=== PATIENT | female | born 1995 | race Caucasian/White ===

== ENCOUNTER 2017-04-23 19:42 | Emergency (ER) | payer BC, OTHER ==
[~2017-04-23] VITALS: Ht 152.4 cm; Wt 52.0 kg
[2017-04-23 19:42] VITALS: BP 114/83
[~2017-04-23 19:42] MED LIST: AZIT250T PO; BIOT1CAP3 PO; CETI10TA16 PO; CIPR500T PO; CLOT15CR4 TP; DEXA4TAB PO; ETHI1TAB PO; FLUO20CA16 PO; GUAN2TAB5 PO; LISD10CA PO; LISD40CA3 PO; MELA1TAB SL; MULT-208 PO; TRAZ50TA15 PO
[2017-04-23] MEDS ORDERED: CLIN300C8 PO (20:13)
[2017-04-23] MEDS ORDERED: CLOT15CR4 TP (20:13)
--- NOTE | 2017-04-23 20:19 | PHYS DOC ---
Past History Past Medical History: Anxiety, Depression Past Surgical History: No Surgical History Smoking: Non-smoker Alcohol Use: None Drug Use: None Adult General Chief Complaint Chief Complaint: SKIN RASH/ABSCESS HPI HPI 22-year-old female presenting to the emergency department today with a rash. She reports the rash started 24 hours ago. There are 3 locations of circular annular rashes that are approximately 3 cm in diameter. One is on the upper right shoulder the second is on the cheek and the other is just on the right eyebrow. They are not itchy. They're not painful. She denies having any fevers. She denies any vision changes or chills. Duration constant. No alleviating or exacerbating factors present. Review of systems is negative for fevers chills nausea vomiting. All other review of systems is negative unless otherwise noted in history of present illness. ED course: 22-year-old female presenting with 3 annular rashes in different locations. She is afebrile with a normal heart rate here in the emergency room and well-appearing. On examination of the patient's rash she has a 3 cm diameter circular mildly raised macular rash in the above locations. The rash does kin. Clinically suggestive of tinea corporis. We will initiate topical antifungals. Cellulitis is in the differential though less likely. We will cover for this with oral antibiotics to have her follow-up with her doctor the next few days. The patient was then discharged home in stable condition to follow up with their primary care physician over the next 2-3 days. They were to return if their symptoms worsened or if they were concerned for any reason. [id number] discharge instructions and return precautions were given. Patient' s questions were answered to their satisfaction. Patient is comfortable plan. Review of Systems Review of Systems SEE ABOVE. Allergies Allergies Allergies Coded Allergies Type Severity Reaction Last Updated Verified Penicillins Allergy Unknown 08/20/13 Yes amoxicillin Allergy Unknown 08/20/13 Yes Physical Exam Physical Exam SEE ABOVE Constitutional: Well developed, well nourished, no acute distress, non-toxic appearance. [] HENT: Normocephalic, atraumatic, bilateral external ears normal, oropharynx moist, no oral exudates, nose normal. [] Eyes: PERRLA, EOMI, conjunctiva normal, no discharge. [] Neck: Normal range of motion, no tenderness, supple, no stridor. [] Cardiovascular:Heart rate regular rhythm, no murmur [] Lungs & Thorax: Bilateral breath sounds clear to auscultation [] Abdomen: Bowel sounds normal, soft, no tenderness, no masses, no pulsatile masses. [] Skin: Warm, dry, no erythema, no rash. [] Back: No tenderness, no CVA tenderness. [] Extremities: No tenderness, no cyanosis, no clubbing, ROM intact, no edema. [] Neurologic: Alert and oriented X 3, normal motor function, normal sensory function, no focal deficits noted. [] Psychologic: Affect normal, judgement normal, mood normal. [] EKG EKG [] Radiology/Procedures Radiology/Procedures [] Course & Med Decision Making Course & Med Decision Making Pertinent Labs and Imaging studies reviewed. (See chart for details) [] Dragon Disclaimer Dragon Disclaimer This electronic medical record was generated, in whole or in part, using a voice recognition dictation system. Departure Departure: Impression: Primary Impression: Tinea corporis Disposition: HOME, SELF-CARE Condition: STABLE Referrals: PCP,ALEJANDRINA (PCP) Additional Instructions: Thank you for allowing us to participate in your care today. Followup with your primary care physician in 3 days if your symptoms do not improve. Call your Primary Doctor tomorrow and inform them of your visit today. If you do not have a primary care provider you can ask for a list of our primary care providers. Return to the emergency department you have any new or concerning findings. This should be evaluated by the primary care physician and any necessary consulting services for continued management within a few days after discharge. Return to emergency room if you have any new or concerning symptoms including but not limited to fever, chills, nausea, vomiting, intractable pain, any new rashes, chest pain, shortness of air, uncontrolled bleeding, difficulty breathing, and/or vision loss. Scripts Clindamycin Hcl (CLINDAMYCIN HCL) 300 Mg Capsule 1 CAP PO TID, #21 CAP Prov: DARRIAN MCGEE MD 04/23/17 Clotrimazole (CLOTRIMAZOLE) 15 Gm Cream..g. 1 DELIA TP BID, #30 GM Prov: DARRIAN MCGEE MD 04/23/17 DARRIAN MCGEE MD Apr 23, 2017 20:19
== END 2017-04-23 20:36 | disposition home or self-care (01) ==
LOC: ER 19:42
DX: B35.4 Tinea corporis (principal); F41.9 Anxiety disorder, unspecified; F32.9 Major depressive disorder, single episode, unspecified; Z88.0 Allergy status to penicillin; Z88.1 Allergy status to other antibiotic agents
CPT/HCPCS: 99283

== ENCOUNTER 2018-09-18 17:09 | Emergency (ER) | payer BC, OTHER ==
[~2018-09-18] VITALS: Ht 152.4 cm; Wt 57.6 kg
[~2018-09-18 17:09] MED LIST changes: +CLIN300C8 PO; +TRAZ-120 PO; -TRAZ50TA15 PO
[2018-09-18] MEDS ORDERED: IV RINGERS SOLUTION,LACTATED 1,000 ML IV SCH (18:11)
--- NOTE | 2018-09-18 18:19 | ED.ADGEN ---
Past History Past Medical History: Anxiety, Depression, Other Past Surgical History: No Surgical History Smoking: Non-smoker Alcohol Use: Rarely Drug Use: None Adult General Chief Complaint Chief Complaint ".. I ve had abdomen pain .. and spotting since 2 weeks ago... after I had a IUD placed.. by Dr. Michel.. I ve had Ovarian cysts before that hurt.. but not like this.. 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 pain. Patient states she's had abdomen pain since implantation of IUD 2 weeks ago. Patient denies any specific ill contacts. No recent travel. Has recently moved from [place]. Has had 4 lifetime sex partn ers. No history of STDs. Had a normal stool today. Patient does history of ovarian cysts. Patient notes pain seems to be more present on right lower abdomen. Patient continues to spot since implantation of IUD. Pt. normally follows with Dr. Renae and Dr. Michel wound care rn. Review of Systems Review of Systems Constitutional: Denies fever or chills [] Eyes: Denies change in visual acuity, redness, or eye pain [] HENT: Denies nasal congestion or sore throat [] Respiratory: Denies cough or shortness of breath [] Cardiovascular: No additional information not addressed in HPI [] GI: Complaints of pelvic abdominal pain, nausea,. Denies vomiting, bloody stools or diarrhea [] : Denies dysuria or hematuria [] Musculoskeletal: Denies back pain or joint pain [] Integument: Denies rash or skin lesions [] Neurologic: Denies headache, focal weakness or sensory changes [] Endocrine: Denies polyuria or polydipsia [] All other systems were reviewed and found to be within normal limits, except as documented in this note. Family History Family History Noncontributory Current Medications Current Medications Current Medications Medications (Trade) Dose Ordered Sig/Armando Start Time Stop Time Status Last Admin Dose Admin Famotidine (Pepcid Vial) 20 mg 1X ONCE 09/18/18 18:30 09/18/18 18:31 DC 09/18/18 19:15 20 MG Fluorescein Sodium (Ful-Dania 1mg) 2 strip 1X ONCE 09/18/18 19:30 09/18/18 19:31 Cancel Iohexol (Omnipaque 240 Mg/ml) 30 ml 1X ONCE 09/18/18 19:15 09/18/18 19:17 DC 09/18/18 20:57 30 ML Iohexol (Omnipaque 300 Mg/ml) 75 ml 1X ONCE 09/18/18 19:30 09/18/18 19:31 DC 09/18/18 20:57 75 ML Ketorolac Tromethamine (Acular) 2 drop 1X ONCE 09/18/18 19:30 09/18/18 19:31 Cancel Lactated Ringer's 1,000 ml @ 1,000 mls/hr Q1H 09/18/18 18:11 09/18/18 19:10 DC 09/18/18 19:15 1,000 MLS/HR Ondansetron HCl (Zofran) 8 mg 1X ONCE 09/18/18 18:30 09/18/18 18:31 DC 09/18/18 19:16 8 MG Tetracaine HCl (Tetracaine) 2 drop 1X STAT 09/18/18 19:17 09/18/18 19:18 Cancel Allergies Allergies Allergies Coded Allergies Type Severity Reaction Last Updated Verified Penicillins Allergy Unknown 08/20/13 Yes amoxicillin Allergy Unknown 08/20/13 Yes Physical Exam Physical Exam Constitutional: Well developed, well nourished, moderately acute distress, non- toxic appearance. [] HENT: Normocephalic, atraumatic, bilateral external ears normal, oropharynx moist, no oral exudates, nose normal. [] Eyes: PERRLA, EOMI, conjunctiva normal, no discharge. []glasses. Neck: Normal range of motion, no tenderness, supple, no stridor. [] Cardiovascular:Heart rate regular rhythm, no murmur [] Lungs & Thorax: Bilateral breath sounds clear to auscultation [] Abdomen: Bowel sounds normal, soft, Rt. lower abd. tenderness, no masses, no pulsatile masses. . Pelvic exam localizes pain to right adnexal area. Mild cervical motion tenderness. Is spotting. IUD string is visible.[] Does have mild rebound to right lower quadrant. Rectal nontender Skin: Warm, dry, no erythema, no rash. [] Back: No tenderness, no CVA tenderness. [] Extremities: No tenderness, no cyanosis, no clubbing, ROM intact, no edema. [] Does have a very mild psoas. On right Neurologic: Alert and oriented X 3, normal motor function, normal sensory function, no focal deficits noted. [] Psychologic: Affect anxious, judgement normal, mood normal. [] Current Patient Data Vital Signs Vital Signs Date Time Temp Pulse Resp B/P (MAP) Pulse Ox O2 Delivery O2 Flow Rate FiO2 09/18/18 22:45 98.2 82 16 107/62 (77) 100 Room Air Lab Results Laboratory Tests Test 09/18/18 18:33 09/18/18 18:40 09/18/18 18:54 09/18/18 19:03 White Blood Count 8.2 x10^3/uL (4.0-11.0) Red Blood Count 4.70 x10^6/uL (3.50-5.40) Hemoglobin 13.4 g/dL (12.0-15.5) Hematocrit 39.4 % (36.0-47.0) Mean Corpuscular Volume 84 fL (79-100) Mean Corpuscular Hemoglobin 29 pg (25-35) Mean Corpuscular Hemoglobin Concent 34 g/dL (31-37) Red Cell Distribution Width 13.2 % (11.5-14.5) Platelet Count 282 x10^3/uL (140-400) Neutrophils (%) (Auto) 58 % (31-73) Lymphocytes (%) (Auto) 31 % (24-48) Monocytes (%) (Auto) 7 % (0-9) Eosinophils (%) (Auto) 2 % (0-3) Basophils (%) (Auto) 1 % (0-3) Neutrophils # (Auto) 4.8 x10^3uL (1.8-7.7) Lymphocytes # (Auto) 2.6 x10^3/uL (1.0-4.8) Monocytes # (Auto) 0.6 x10^3/uL (0.0-1.1) Eosinophils # (Auto) 0.2 x10^3/uL (0.0-0.7) Basophils # (Auto) 0.1 x10^3/uL (0.0-0.2) Prothrombin Time 9.3 SEC (9.4-11.4) L Prothrombin Time INR 0.9 (0.9-1.1) PTT 23 SEC (23-33) Urine Collection Type Unknown Urine Color Straw Urine Clarity Clear Urine pH 7.0 Urine Specific [place] 1.010 Urine Protein Neg (NEG-TRACE) Urine Glucose (UA) Neg mg/dL (NEG) Urine Ketones (Stick) Neg mg/dL (NEG) Urine Blood Small (NEG) Urine Nitrite Neg (NEG) Urine Bilirubin Neg (NEG) Urine Urobilinogen Dipstick 0.2 mg/dL (0.2 mg/dL) Urine Leukocyte Esterase Neg (NEG) Urine RBC 0 /HPF (0-2) Urine WBC 0 /HPF (0-4) Urine Squamous Epithelial Cells Occ /LPF Urine Bacteria 0 /HPF (0-FEW) Urine Opiates Screen Neg (NEG) Urine Methadone Screen Neg (NEG) Urine Barbiturates Neg (NEG) Urine Phencyclidine Screen Neg (NEG) Urine Amphetamine/Methamphetamine Neg (NEG) Urine Benzodiazepines Screen Neg (NEG) Urine Cocaine Screen Neg (NEG) Urine Cannabinoids Screen Neg (NEG) Urine Ethyl Alcohol Neg (NEG) Sodium Level 141 mmol/L (136-145) Potassium Level 3.9 mmol/L (3.5-5.1) Chloride Level 104 mmol/L (98-107) Carbon Dioxide Level 29 mmol/L (21-32) Anion Gap 8 (6-14) Blood Urea Nitrogen 11 mg/dL (7-20) Creatinine 0.7 mg/dL (0.6-1.0) Estimated GFR (Cockcroft-Gault) 105.6 Glucose Level 81 mg/dL (70-99) Calcium Level 9.1 mg/dL (8.5-10.1) Total Bilirubin 0.2 mg/dL (0.2-1.0) Direct Bilirubin < 0.1 mg/dL (0.0-0.2) Aspartate Amino Transferase (AST) 17 U/L (15-37) Alanine Aminotransferase (ALT) 21 U/L (14-59) Alkaline Phosphatase 62 U/L (46-116) Total Protein 7.3 g/dL (6.4-8.2) Albumin 3.6 g/dL (3.4-5.0) Amylase Level 65 U/L (25-115) Lipase 133 U/L (73-393) POC Urine HCG, Qualitative hcg negative (Negative) Microbiology 09/18/18 Wet Prep - Final, Complete Laboratory Tests Test 09/18/18 18:33 09/18/18 18:40 09/18/18 18:54 09/18/18 19:03 White Blood Count 8.2 x10^3/uL (4.0-11.0) Red Blood Count 4.70 x10^6/uL (3.50-5.40) Hemoglobin 13.4 g/dL (12.0-15.5) Hematocrit 39.4 % (36.0-47.0) Mean Corpuscular Volume 84 fL (79-100) Mean Corpuscular Hemoglobin 29 pg (25-35) Mean Corpuscular Hemoglobin Concent 34 g/dL (31-37) Red Cell Distribution Width 13.2 % (11.5-14.5) Platelet Count 282 x10^3/uL (140-400) Neutrophils (%) (Auto) 58 % (31-73) Lymphocytes (%) (Auto) 31 % (24-48) Monocytes (%) (Auto) 7 % (0-9) Eosinophils (%) (Auto) 2 % (0-3) Basophils (%) (Auto) 1 % (0-3) Neutrophils # (Auto) 4.8 x10^3uL (1.8-7.7) Lymphocytes # (Auto) 2.6 x10^3/uL (1.0-4.8) Monocytes # (Auto) 0.6 x10^3/uL (0.0-1.1) Eosinophils # (Auto) 0.2 x10^3/uL (0.0-0.7) Basophils # (Auto) 0.1 x10^3/uL (0.0-0.2) Prothrombin Time 9.3 SEC (9.4-11.4) L Prothrombin Time INR 0.9 (0.9-1.1) PTT 23 SEC (23-33) Urine Collection Type Unknown Urine Color Straw Urine Clarity Clear Urine pH 7.0 Urine Specific [place] 1.010 Urine Protein Neg (NEG-TRACE) Urine Glucose (UA) Neg mg/dL (NEG) Urine Ketones (Stick) Neg mg/dL (NEG) Urine Blood Small (NEG) Urine Nitrite Neg (NEG) Urine Bilirubin Neg (NEG) Urine Urobilinogen Dipstick 0.2 mg/dL (0.2 mg/dL) Urine Leukocyte Esterase Neg (NEG) Urine RBC 0 /HPF (0-2) Urine WBC 0 /HPF (0-4) Urine Squamous Epithelial Cells Occ /LPF Urine Bacteria 0 /HPF (0-FEW) Urine Opiates Screen Neg (NEG) Urine Methadone Screen Neg (NEG) Urine Barbiturates Neg (NEG) Urine Phencyclidine Screen Neg (NEG) Urine Amphetamine/Methamphetamine Neg (NEG) Urine Benzodiazepines Screen Neg (NEG) Urine Cocaine Screen Neg (NEG) Urine Cannabinoids Screen Neg (NEG) Urine Ethyl Alcohol Neg (NEG) Sodium Level 141 mmol/L (136-145) Potassium Level 3.9 mmol/L (3.5-5.1) Chloride Level 104 mmol/L (98-107) Carbon Dioxide Level 29 mmol/L (21-32) Anion Gap 8 (6-14) Blood Urea Nitrogen 11 mg/dL (7-20) Creatinine 0.7 mg/dL (0.6-1.0) Estimated GFR (Cockcroft-Gault) 105.6 Glucose Level 81 mg/dL (70-99) Calcium Level 9.1 mg/dL (8.5-10.1) Total Bilirubin 0.2 mg/dL (0.2-1.0) Direct Bilirubin < 0.1 mg/dL (0.0-0.2) Aspartate Amino Transferase (AST) 17 U/L (15-37) Alanine Aminotransferase (ALT) 21 U/L (14-59) Alkaline Phosphatase 62 U/L (46-116) Total Protein 7.3 g/dL (6.4-8.2) Albumin 3.6 g/dL (3.4-5.0) Amylase Level 65 U/L (25-115) Lipase 133 U/L (73-393) POC Urine HCG, Qualitative hcg negative (Negative) Microbiology 09/18/18 Wet Prep - Final, Complete EKG EKG [] Radiology/Procedures Radiology/Procedures My interpretation of abdomen film shows no acute cardiopulmonary findings. No free air in the diaphragm. Nonobstructive bowel gas pattern. There is a stool in colon. The IUD visible CT of abdomen shows[] a left ovarian cyst. Appendix was not specifically identified. No noted inflammation. No free air. IUD appears appropriately placed. See formal report when available Course & Med Decision Making Course & Med Decision Making Pertinent Labs and Imaging studies reviewed. (See chart for details) Patient's stay on a clear fluid diet only for the next 2 days. Take Tylenol and ibuprofen for pain. Must have re exam localization of pain. May need repeat CT. Will up pending cultures. Return if any concerns. Follow-up primary care. Follow-up [facility]ATIONS [employer]IST. [] Final Impression Final Impression 1. Pelvic Pain[] Rt. lower Quadrant 2. Left ovarian cyst 3. Recent IUD placement Dragon Disclaimer Dragon Disclaimer This electronic medical record was generated, in whole or in part, using a voice recognition dictation system. Discharge Summary Visit Information Final Diagnosis Problems Medical Problems: (1) Abdominal pain Status: Acute (2) Ovarian cyst Status: Acute Brief Hospital Course Allergies Allergies Coded Allergies Type Severity Reaction Last Updated Verified Penicillins Allergy Unknown 08/20/13 Yes amoxicillin Allergy Unknown 08/20/13 Yes Vital Signs Vital Signs Date Time Temp Pulse Resp B/P (MAP) Pulse Ox O2 Delivery O2 Flow Rate FiO2 09/18/18 22:45 98.2 82 16 107/62 (77) 100 Room Air Lab Results Laboratory Tests Test 09/18/18 18:33 09/18/18 18:40 09/18/18 18:54 09/18/18 19:03 White Blood Count 8.2 x10^3/uL (4.0-11.0) Red Blood Count 4.70 x10^6/uL (3.50-5.40) Hemoglobin 13.4 g/dL (12.0-15.5) Hematocrit 39.4 % (36.0-47.0) Mean Corpuscular Volume 84 fL (79-100) Mean Corpuscular Hemoglobin 29 pg (25-35) Mean Corpuscular Hemoglobin Concent 34 g/dL (31-37) Red Cell Distribution Width 13.2 % (11.5-14.5) Platelet Count 282 x10^3/uL (140-400) Neutrophils (%) (Auto) 58 % (31-73) Lymphocytes (%) (Auto) 31 % (24-48) Monocytes (%) (Auto) 7 % (0-9) Eosinophils (%) (Auto) 2 % (0-3) Basophils (%) (Auto) 1 % (0-3) Neutrophils # (Auto) 4.8 x10^3uL (1.8-7.7) Lymphocytes # (Auto) 2.6 x10^3/uL (1.0-4.8) Monocytes # (Auto) 0.6 x10^3/uL (0.0-1.1) Eosinophils # (Auto) 0.2 x10^3/uL (0.0-0.7) Basophils # (Auto) 0.1 x10^3/uL (0.0-0.2) Prothrombin Time 9.3 SEC (9.4-11.4) Prothromb Time International Ratio 0.9 (0.9-1.1) Activated Partial Thromboplast Time 23 SEC (23-33) Urine Collection Type Unknown Urine Color Straw Urine Clarity Clear Urine pH 7.0 Urine Specific [place]ef[place] 1.010 Urine Protein Neg (NEG-TRACE) Urine Glucose (UA) Neg mg/dL (NEG) Urine Ketones (Stick) Neg mg/dL (NEG) Urine Blood Small (NEG) Urine Nitrite Neg (NEG) Urine Bilirubin Neg (NEG) Urine Urobilinogen Dipstick 0.2 mg/dL (0.2 mg/dL) Urine Leukocyte Esterase Neg (NEG) Urine RBC 0 /HPF (0-2) Urine WBC 0 /HPF (0-4) Urine Squamous Epithelial Cells Occ /LPF Urine Bacteria 0 /HPF (0-FEW) Urine Opiates Screen Neg (NEG) Urine Methadone Screen Neg (NEG) Urine Barbiturates Neg (NEG) Urine Phencyclidine Screen Neg (NEG) Urine Amphetamine/Methamphetamine Neg (NEG) Urine Benzodiazepines Screen Neg (NEG) Urine Cocaine Screen Neg (NEG) Urine Cannabinoids Screen Neg (NEG) Urine Ethyl Alcohol Neg (NEG) Sodium Level 141 mmol/L (136-145) Potassium Level 3.9 mmol/L (3.5-5.1) Chloride Level 104 mmol/L (98-107) Carbon Dioxide Level 29 mmol/L (21-32) Anion Gap 8 (6-14) Blood Urea Nitrogen 11 mg/dL (7-20) Creatinine 0.7 mg/dL (0.6-1.0) Estimated GFR (Cockcroft-Gault) 105.6 Glucose Level 81 mg/dL (70-99) Calcium Level 9.1 mg/dL (8.5-10.1) Total Bilirubin 0.2 mg/dL (0.2-1.0) Direct Bilirubin < 0.1 mg/dL (0.0-0.2) Aspartate Amino Transf (AST/SGOT) 17 U/L (15-37) Alanine Aminotransferase (ALT/SGPT) 21 U/L (14-59) Alkaline Phosphatase 62 U/L (46-116) Total Protein 7.3 g/dL (6.4-8.2) Albumin 3.6 g/dL (3.4-5.0) Amylase Level 65 U/L (25-115) Lipase 133 U/L (73-393) Bedside Urine HCG, Qualitative hcg negative (Negative) Brief Hospital Course Ms. Mcgill is a 23 old female who presented with Rt. lower quadrant and pelvic pain. Hx. recent IUD placement. Discharge Information Condition at Discharge: Improved, Stable Disposition/Orders: D/C to Home Dischare Medications Current Medications Lactated Ringer's 1,000 ml @ 1,000 mls/hr Q1H IV Last administered on 09/18/18at 19:15; Admin Dose 1,000 MLS/HR; Start 09/18/18 at 18:11; Stop 09/18/18 at 19:10; Status DC Ondansetron HCl (Zofran) 8 mg 1X ONCE IV Last administered on 09/18/18at 19:16; Admin Dose 8 MG; Start 09/18/18 at 18:30; Stop 09/18/18 at 18:31; Status DC Famotidine (Pepcid Vial) 20 mg 1X ONCE IVP Last administered on 09/18/18at 19:15; Admin Dose 20 MG; Start 09/18/18 at 18:30; Stop 09/18/18 at 18:31; Status DC Iohexol (Omnipaque 240 Mg/ml) 30 ml 1X ONCE PO Last administered on 09/18/18at 20:57; Admin Dose 30 ML; Start 09/18/18 at 19:15; Stop 09/18/18 at 19:17; Status DC Iohexol (Omnipaque 300 Mg/ml) 75 ml 1X ONCE IV Last administered on 09/18/18at 20:57; Admin Dose 75 ML; Start 09/18/18 at 19:30; Stop 09/18/18 at 19:31; Status DC Tetracaine HCl (Tetracaine) 2 drop 1X STAT OU ; Start 09/18/18 at 19:17; Stop 09/18/18 at 19:18; Status Cancel Ketorolac Tromethamine (Acular) 2 drop 1X ONCE OU ; Start 09/18/18 at 19:30; Stop 09/18/18 at 19:31; Status Cancel Fluorescein Sodium (Ful-Dania 1mg) 2 strip 1X ONCE OU ; Start 09/18/18 at 19:30; Stop 09/18/18 at 19:31; Status Cancel Active Scripts Active Zofran (Ondansetron Hcl) 8 Mg Tablet 8 Mg PO QIDPRN Hydrocodone-Ibuprofen 7.5-200 (Hydrocodone/Ibuprofen) 1 Each Tablet 1 Tab PO PRN Q6HRS PRN Clindamycin Hcl 300 Mg Capsule 1 Cap PO TID Clotrimazole 15 Gm Cream..g. 1 Rosita TP BID Ciprofloxacin Hcl 500 Mg Tablet 1 Tab PO BID Reported Trazodone Hcl 50 Mg Tablet 0.5 Tab PO QHS Biotin 1 Mg Capsule 1 Mg PO Gianvi 3 Mg-0.02 Mg Tablet (Ethinyl Estradiol/Drospirenone) 1 Each Tablet 1 Tab PO DAILY Melatonin 1 Mg Tab.subl 1 Mg SL Cetirizine Hcl 10 Mg Tablet 1 Tab PO DAILY Prozac (Fluoxetine Hcl) 20 Mg Capsule 1 Cap PO DAILY Vyvanse (Lisdexamfetamine Dimesylate) 10 Mg Capsule 60 Mg PO DAILY Zithromax (Azithromycin) 250 Mg Tablet 250 Mg PO DAILY Dexamethasone 4 Mg Tablet 4 Tab PO DAILY Clotrimazole 15 Gm Cream..g. 1 Rosita TP TID Vestura 3 Mg-0.02 Mg Tablet (Ethinyl Estradiol/Drospirenone) 1 Each Tablet 1 Each PO DAILY Intuniv (Guanfacine Hcl) 2 Mg Tab.er.24h 2 Mg PO QHS Multi-Day Vitamins (Multivitamin) 1 Each Tablet 1 Each PO DAILY Vyvanse (Lisdexamfetamine Dimesylate) 40 Mg Capsule 40 Mg PO DAILY Dragon Disclaimer This chart was dictated in whole or in part using Voice Recognition software in a busy, high-work load, and often noisy Emergency Department environment. It may contain unintended and wholly unrecognized errors or omissions. ARNALDO MONTES MD Sep 18, 2018 18:19
[2018-09-18] MEDS ORDERED: ONDANSETRON PF 4 MG/2 ML VIAL. IV ONE (18:30)
[2018-09-18] MEDS ORDERED: FAMOTIDINE 20 MG/2 ML VIAL IVP ONE (18:30)
[2018-09-18 18:50] LABS: BASO # 0.1 x10^3/uL (0.0-0.2); BASO % 1 % (0-3); EOS # 0.2 x10^3/uL (0.0-0.7); EOS % 2 % (0-3); HEMATOCRIT 39.4 % (36.0-47.0); HEMOGLOBIN 13.4 g/dL (12.0-15.5); LYMPH # 2.6 x10^3/uL (1.0-4.8); LYMPH % 31 % (24-48); MEAN CORPUSCULAR HEMOGLOBIN 29 pg (25-35); MEAN CORPUSCULAR HGB CONC 34 g/dL (31-37); MEAN CORPUSCULAR VOLUME 84 fL (79-100); MONO # 0.6 x10^3/uL (0.0-1.1); MONO % 7 % (0-9); NEUT # 4.8 x10^3uL (1.8-7.7); NEUT % 58 % (31-73); PLATELET COUNT 282 x10^3/uL (140-400); RED CELL DISTRIBUTION WIDTH 13.2 % (11.5-14.5); WHITE BLOOD COUNT 8.2 x10^3/uL (4.0-11.0)
[2018-09-18] MEDS ORDERED: IOHEXOL 240 MG/ML 50ML VIAL. PO ONE (19:15)
[2018-09-18] MEDS ORDERED: TETRACAINE 0.5% OPHTH SOLUTION 4ML BOTTLE. OU STA (19:17)
[2018-09-18] MEDS ORDERED: KETOROLAC TROMETHAMINE 0.5% OPHTH SOLUTION 3ML BOTTLE. OU ONE (19:30)
[2018-09-18] MEDS ORDERED: IOHEXOL 300 MG/ML 75 ML VIAL. IV ONE (19:30)
[2018-09-18] MEDS ORDERED: FLUORESCEIN 1MG EYE STRIP. OU ONE (19:30)
[2018-09-18 19:40] LABS: BACTERIA,URINE 0 /HPF (0-FEW); BILIRUBIN,URINE NEG (NEG); CLARITY,URINE CLEAR; COLOR,URINE STRAW; GLUCOSE,URINE NEG (NEG); NITRITE,URINE NEG (NEG); RBC,URINE 0 /HPF (0-2); SQUAMOUS EPITHELIAL CELL,UR OCC /LPF; UROBILINOGEN,URINE 0.2 mg/dL (0.2 mg/dL); WBC,URINE 0 /HPF (0-4)
[2018-09-18 19:53] LABS: AMPHETAMINE/METHAMPHETAMINE NEG (NEG); BARBITURATES NEG (NEG); BENZODIAZEPINES NEG (NEG); CANNABINOIDS NEG (NEG); COCAINE NEG (NEG); METHADONE NEG (NEG); OPIATES NEG (NEG); PHENCYCLIDINE NEG (NEG)
[2018-09-18 19:57] LABS: ALBUMIN 3.6 g/dL (3.4-5.0); ALK PHOS 62 U/L (46-116); ALT (SGPT) 21 U/L (14-59); AMYLASE 65 U/L (25-115); ANION GAP 8 (6-14); AST (SGOT) 17 U/L (15-37); BLOOD UREA NITROGEN 11 mg/dL (7-20); CALCIUM 9.1 mg/dL (8.5-10.1); CARBON DIOXIDE 29 mmol/L (21-32); CHLORIDE 104 mmol/L (98-107); CREATININE 0.7 mg/dL (0.6-1.0); GFR 105.6; GLUCOSE 81 mg/dL (70-99); LIPASE 133 U/L (73-393); POTASSIUM 3.9 mmol/L (3.5-5.1); SODIUM 141 mmol/L (136-145); TOTAL BILIRUBIN 0.2 mg/dL (0.2-1.0); TOTAL PROTEIN 7.3 g/dL (6.4-8.2)
[2018-09-18 19:58] LABS: DIRECT BILIRUBIN < 0.1 mg/dL (0.0-0.2)
--- NOTE | 2018-09-18 21:05 | RAD ---
ACUTE ABDOMEN SERIES History: Lower abdomen pain, nausea x 4 days. IUD placed 2 wks ago. Hx: PCOS. Single view the chest demonstrates no evidence of pneumothorax, pleural effusion or infiltrate. The heart size is not enlarged. Regional skeleton appears grossly intact. Upright and supine views of the abdomen demonstrate no evidence of free intraperitoneal gas. The bowel gas pattern does not appear obstructive. There is mild stool throughout the colon. Intrauterine device is seen. Skeletal structures appear intact. No evidence of pathologic calcification. IMPRESSION: No acute radiographic findings. Electronically signed by: Brenden Man MD (09/18/2018 9:02 PM) [facility]
--- NOTE | 2018-09-18 21:21 | RAD ---
CT ABD PELV W/ORAL IV CONTRAST Indication: Omni 300 75cc: Lower pelvic pain, nausea x 4 days. IUD placed 2 weeks ago, PCOS Exposure: One or more of the following individualized dose reduction techniques were utilized for this examination: 1. Automated exposure control 2. Adjustment of the mA and/or kV according to patient size 3. Use of iterative reconstruction technique. Technique: Intravenous contrast was given. Oral contrast was given. The lung bases are clear. Liver and spleen appear grossly unremarkable. Pancreas unremarkable. No evidence of adrenal mass. Kidneys demonstrate symmetric enhancement without dominant lesion or hydronephrosis. No calcified gallstone. The aorta is nonaneurysmal. No evidence of significant lymph node enlargement. No evidence of acute colitis. No evidence of bowel obstruction. Mild retained stool in the colon. Appendix is not definitely visualized. No evidence of ascites or pneumoperitoneum. Intrauterine device is noted. There is a heterogeneous mass in the left adnexa measuring about 3.5 cm. This consist of multiple varying densities, some of which are similar to fat. There is also a small calcification. Vertebral body height and alignment are intact. There is no evidence of acute bone abnormality. IMPRESSION: 1. Left ovarian lesion measures 3.5 cm, most likely a dermoid cyst or teratoma. 2. No acute findings aren't identified in the abdomen or pelvis. Electronically signed by: Brenden Man MD (09/18/2018 9:18 PM) [facility]
[2018-09-18] MEDS ORDERED: HYDR-1179 PO (22:37)
[2018-09-18] MEDS ORDERED: ONDA8TAB9 PO (22:38)
[2018-09-18 22:45] VITALS: BP 107/62
[2018-09-20 14:07] LABS: CHLAMYDIA PROBE Negative (Negative)
== END 2018-09-18 23:01 | disposition home or self-care (01) ==
LOC: ER 17:09
DX: N83.202 Unspecified ovarian cyst, left side (principal); Z97.5 Presence of (intrauterine) contraceptive device; F41.9 Anxiety disorder, unspecified; F32.9 Major depressive disorder, single episode, unspecified; Z88.0 Allergy status to penicillin; Z88.1 Allergy status to other antibiotic agents
CPT/HCPCS: 36415; 74022; 74177; 80048; 80076; 80307; 81001; 81025; 82150; 83690; 85025; 85610; 85730; 86705; 86709; 86803; 87340; 87491; 87591; 96374; 96375; 99285; J2405; J3490; J7120; Q0111; Q9966; Q9967; 87480; 87510; 87660

== ENCOUNTER → 2020-02-28 | Outpatient (CLI) | payer BC ==
[~2020-02-28] MED LIST changes: +CLOT15CR23 TP; -CLOT15CR4 TP; +HYDR-1179 PO; +ONDA8TAB9 PO
[2020-02-28 13:18] LABS: CALCIUM 9.3 mg/dL (8.5-10.1); CREATININE 0.9 mg/dL (0.6-1.0); GFR 78.3; POTASSIUM 4.2 mmol/L (3.5-5.1)
[2020-02-28 13:25] LABS: ALBUMIN 4.1 g/dL (3.4-5.0); ALBUMIN/GLOBULIN RATIO 1.1 (1.0-1.7); TOTAL BILIRUBIN 0.3 mg/dL (0.2-1.0)
== END ==
LOC: LAB 12:26
PROVIDERS: ATTEND Family Medicine
DX: R79.9 Abnormal finding of blood chemistry, unspecified (principal)
CPT/HCPCS: 36415; 80053